=== PATIENT | female | born 1990 | race Caucasian/White ===

== ENCOUNTER 2016-10-31 09:24 | Emergency (ER) | payer OTHER ==
[~2016-10-31] VITALS: Ht 152.4 cm; Wt 111.7 kg
[2016-10-31 09:29] VITALS: TEMP 36.8; Ht 152.4 cm; Wt 111.7 kg
[2016-10-31 09:49] VITALS: O2SAT 98
[2016-10-31] MEDS ORDERED: SODIUM CHLORIDE 0.9% 1000ML 500 ML IV STA (09:49)
[2016-10-31] MEDS ORDERED: SODIUM CHLORIDE 0.9% 1000ML 1,000 ML IV STA (09:49)
[2016-10-31 10:21] LABS: HEMATOCRIT 35.8 % (37-47); MEAN CELL VOLUME 79.7 fL (80-100); MEAN CORPUSCULAR HEMOGLOBIN 27.4 pg (25-34); MEAN CORPUSCULAR HGB CONC 34.4 g/dl (32-36); PLATELET COUNT 228 K/uL (130-400); RED BLOOD COUNT 4.49 M/uL (4.2-5.4); WHITE BLOOD COUNT 12.49 K/uL (4.8-10.8)
--- NOTE | 2016-10-31 10:26 | DIAGNOSTIC IMAGING REPORT ---
CHEST ONE VIEW PORTABLE CLINICAL HISTORY: Chest pain. Difficulty breathing. COMPARISON STUDY: Chest radiograph May 27, 2016. FINDINGS: Lung lungs are mildly diminished. This is unchanged. There is no pneumothorax or pleural effusion. There is no evidence of pulmonary edema. Cardiac size is stable at the upper limits of normal. There is no evidence of pulmonary edema. IMPRESSION: No acute cardiopulmonary findings. Electronically signed by: Bryan Conroy M.D. 10/31/2016 10:24 AM Dictated Date/Time: 10/31/2016 10:23 AM
[2016-10-31 10:29] LABS: PARTIAL THROMBOPLASTIN RATIO 1.2; PROTHROMBIN TIME (PATIENT) 10.7 SECONDS (9.0-12.0)
[2016-10-31 10:38] LABS: ALT/SGPT 33 U/L (12-78); BLOOD UREA NITROGEN 13 mg/dl (7-18); BUN/CREATININE RATIO 15.1 (10-20); CALCIUM 8.7 mg/dl (8.5-10.1); CARBON DIOXIDE 24 mmol/L (21-32); CHLORIDE 107 mmol/L (98-107); CREATININE 0.88 mg/dl (0.60-1.20); GLUCOSE 114 mg/dl (70-99); POTASSIUM 3.4 mmol/L (3.5-5.1); SODIUM 142 mmol/L (136-145)
[2016-10-31 10:44] LABS: ALB/GLOB RATIO 0.8 (0.9-2); ALKALINE PHOSPHATASE 104 U/L (45-117); AST/SGOT 20 U/L (15-37)
[2016-10-31] MEDS ORDERED: OPTIRAY 320 IV PRN (12:00)
--- NOTE | 2016-10-31 12:43 | DIAGNOSTIC IMAGING REPORT ---
CT ANGIOGRAM OF THE CHEST CLINICAL HISTORY: Atypical chest pain. COMPARISON STUDY: Chest CT dated 07/04/2015 and chest x-ray dated 10/31/2016. TECHNIQUE: Following the IV administration of 75 cc of Optiray 320, CT angiogram of the chest was performed from the upper abdomen to the thoracic inlet utilizing the pulmonary embolus protocol. Images are reviewed in the axial, sagittal, and coronal planes. 3-D MIPS images are created and assessed. The patient was scanned twice due to IV malfunction. CT DOSE: 1132.43 mGy.cm FINDINGS: Thyroid: Imaged portions of the thyroid gland are normal in size and attenuation. Thoracic aorta: The thoracic aorta is normal in caliber and demonstrates standard 3-vessel arch anatomy. No dissection is seen. Pulmonary vasculature: The pulmonary trunk is normal in caliber. There are no filling defects identified in main, lobar, or segmental pulmonary branches to suggest pulmonary embolus. Heart: The heart is normal in size and configuration, and without pericardial effusion. Lungs and pleural spaces: The lungs and pleural spaces are clear. The trachea and central airways are patent. Mediastinum: There is a 2.6 x 5.5 cm lobulated soft tissue lesion anterior mediastinum. This is best seen on axial image #151. There is no mediastinal lymphadenopathy. Ana: Clear. Axillae: There is no axillary lymphadenopathy. Upper abdomen: Cholecystectomy clips are identified. Partially visualized upper abdominal viscera is otherwise within normal limits. Skeletal structures: No lytic or blastic bony lesions are seen. IMPRESSION: 1. There is no evidence of pulmonary embolus in the main, lobar, or segmental pulmonary arteries. 2. The lungs are clear. 3. Again seen is a 5.5 cm lobulated soft tissue lesion in the anterior mediastinum in the expected location of the thymus. This is pathologically indeterminant but unchanged from 07/04/2015 and of low suspicion. Electronically signed by: Landon Goetz M.D. 10/31/2016 12:41 PM Dictated Date/Time: 10/31/2016 12:32 PM
[2016-10-31 13:29] VITALS: BP 135/78; PULSE 84; O2SAT 98
--- NOTE | 2016-10-31 13:39 | EMERGENCY ROOM VISIT NOTE ---
History Report prepared by Gonzalo: Lola Encinas Under the Supervision of: Dr. Landon Bui M.D. First contact with patient: 09:40 Chief Complaint: chest tightness Stated Complaint: PAIN IN CHEST,TROUBLE BREATHING History of Present Illness The patient is a 26 year old female who presents to the Emergency Room with complaints of intermittent tightening pains to her chest over the past 2 months. Currently, she denies being in significant discomfort, however, she has not noticed any exacerbating factors, and nothing seems to make the pains better or worse. When aby a pain to her chest, the patient also becomes short of breath, but she denies radiation of pain to her neck, jaw, back or arm , and she has not become diaphoretic or nauseous. Patient states that she recently had her gallbladder removed late August 2016, and states that she has been experiencing the chest pain and shortness of breath intermittently since that time. She also notes that every bowel movement that she has passed since the surgery has consisted of diarrhea. Patient denies having recent fevers , chills, cough, significant abdominal pain, nausea, vomiting, urinary symptoms , or pain/swelling to her extremities. Source of History: patient Onset: over the past 2 months Position: chest Symptom Intensity: no current pain Quality: other (tightness) Timing: intermittent Associated Symptoms: + SOB, + diarrhea, No back pain, No chills, No cough, No fevers, No nausea, No urinary symptoms, No vomiting Review of Systems See HPI for pertinent positives & negatives. A total of 10 systems reviewed and were otherwise negative. Past Medical & Surgical Medical Problems: (1) Abdominal pain, chronic, right lower quadrant (2) Anxiety (3) Depression (4) Ulcer Surgical Problems: (1) History of appendectomy Family History Blood clots Aunt Diabetes mellitus FH: cancer FH: heart disease FH: lung disease FH: ovarian cancer Hypertension Kidney disease Kidney stones Seizures Social History Smoking Status: Never Smoker Alcohol Use: none Drug Use: none Marital Status: single Housing Status: lives with family Occupation Status: unemployed Current/Historical Medications Scheduled Pphweuk-Byvqnpvybtdgz-Ptmarzpl (Excedrin Migraine), 1 TAB PO PRN Citalopram Hydrobromide (Citalopram Hydrobromide), 10 MG PO QAM Fexofenadine-Pseudoephedrine (Barbara-D 24 Hour Allergy), 1 TAB PO QAM Scheduled PRN Gabapentin (Gabapentin), 100 MG PO TID PRN for ANXIETY Meclizine HCl (Meclizine HCl), 12.5 MG PO TID PRN for PRN Allergies Coded Allergies: No Known Allergies (Verified , 10/31/16) Physical Exam Vital Signs Date Time Temp Pulse Resp B/P Pulse Ox O2 Delivery O2 Flow Rate FiO2 10/31/16 13:29 84 24 135/78 98 Room Air 10/31/16 12:18 74 22 123/69 98 10/31/16 10:28 76 20 142/79 98 Room Air 10/31/16 10:02 87 10/31/16 09:49 98 Room Air 10/31/16 09:44 98 Room Air 10/31/16 09:29 36.8 89 18 117/77 97 Room Air Physical Exam GENERAL: Patient is in no acute distress. HEENT: No acute trauma, normocephalic atraumatic, mucous membranes moist, no nasal congestion, no scleral icterus. NECK: No stridor, no adenopathy, no meningismus, trachea is midline. LUNGS: Clear to auscultation bilaterally, no wheeze, no rhonchi, breath sounds equal. HEART: Without murmurs gallops or rubs, regular rate and rhythm. ABDOMEN: Soft, nontender, bowel sounds positive, no hernias, no peritonitis. EXTREMITIES: No cyanosis or edema, full range of motion of all the joints without pain or difficulty, no signs for acute trauma. NEUROLOGIC: Oriented x 3, no acute motor or sensory deficits, no focal weakness. SKIN: No rash, no jaundice, no diaphoresis. Medical Decision & Procedures ER Provider Diagnostic Interpretation: Urine dip showed small amount of blood and 1+ leukocytes. tests is negative. CT results as stated below per my review and radiologist interpretation: X-ray results as stated below per interpretation by me and the radiologist: CT ANGIOGRAM OF THE CHEST CLINICAL HISTORY: Atypical chest pain. COMPARISON STUDY: Chest CT dated 07/04/2015 and chest x-ray dated 10/31/2016. TECHNIQUE: Following the IV administration of 75 cc of Optiray 320, CT angiogram of the chest was performed from the upper abdomen to the thoracic inlet utilizing the pulmonary embolus protocol. Images are reviewed in the axial, sagittal, and coronal planes. 3-D MIPS images are created and assessed. The patient was scanned twice due to IV malfunction. CT DOSE: 1132.43 mGy.cm FINDINGS: Thyroid: Imaged portions of the thyroid gland are normal in size and attenuation. Thoracic aorta: The thoracic aorta is normal in caliber and demonstrates standard 3-vessel arch anatomy. No dissection is seen. Pulmonary vasculature: The pulmonary trunk is normal in caliber. There are no filling defects identified in main, lobar, or segmental pulmonary branches to suggest pulmonary embolus. Heart: The heart is normal in size and configuration, and without pericardial effusion. Lungs and pleural spaces: The lungs and pleural spaces are clear. The trachea and central airways are patent. Mediastinum: There is a 2.6 x 5.5 cm lobulated soft tissue lesion anterior mediastinum. This is best seen on axial image #151. There is no mediastinal lymphadenopathy. Ana: Clear. Axillae: There is no axillary lymphadenopathy. Upper abdomen: Cholecystectomy clips are identified. Partially visualized upper abdominal viscera is otherwise within normal limits. Skeletal structures: No lytic or blastic bony lesions are seen. IMPRESSION: 1. There is no evidence of pulmonary embolus in the main, lobar, or segmental pulmonary arteries. 2. The lungs are clear. 3. Again seen is a 5.5 cm lobulated soft tissue lesion in the anterior mediastinum in the expected location of the thymus. This is pathologically indeterminant but unchanged from 07/04/2015 and of low suspicion. Electronically signed by: Landon Goetz M.D. 10/31/2016 12:41 PM Dictated Date/Time: 10/31/2016 12:32 PM CHEST ONE VIEW PORTABLE CLINICAL HISTORY: Chest pain. Difficulty breathing. COMPARISON STUDY: Chest radiograph May 27, 2016. FINDINGS: Lung lungs are mildly diminished. This is unchanged. There is no pneumothorax or pleural effusion. There is no evidence of pulmonary edema. Cardiac size is stable at the upper limits of normal. There is no evidence of pulmonary edema. IMPRESSION: No acute cardiopulmonary findings. Electronically signed by: Bryan Conroy M.D. 10/31/2016 10:24 AM Dictated Date/Time: 10/31/2016 10:23 AM Laboratory Results 10/31/16 10:00 10/31/16 10:00 Test 10/31/16 10:00 10/31/16 10:02 Red Blood Count 4.49 M/uL (4.2-5.4) Mean Corpuscular Volume 79.7 fL (80-100) Mean Corpuscular Hemoglobin 27.4 pg (25-34) Mean Corpuscular Hemoglobin Concent 34.4 g/dl (32-36) RDW Standard Deviation 38.9 fL (36.4-46.3) RDW Coefficient of Variation 13.5 % (11.5-14.5) Mean Platelet Volume 10.0 fL (7.4-10.4) Prothrombin Time 10.7 SECONDS (9.0-12.0) Prothromb Time International Ratio 1.0 (0.9-1.1) Activated Partial Thromboplast Time 30.5 SECONDS (21.0-31.0) Partial Thromboplastin Ratio 1.2 Anion Gap 11.0 mmol/L (3-11) Est Creatinine Clear Calc Drug Dose 111.0 ml/min Estimated GFR () 105.8 Estimated GFR (Non- 91.3 BUN/Creatinine Ratio 15.1 (10-20) Calcium Level 8.7 mg/dl (8.5-10.1) Total Bilirubin 0.2 mg/dl (0.2-1) Aspartate Amino Transf (AST/SGOT) 20 U/L (15-37) Alanine Aminotransferase (ALT/SGPT) 33 U/L (12-78) Alkaline Phosphatase 104 U/L (45-117) Troponin I < 0.015 ng/ml (0-0.045) Total Protein 7.1 gm/dl (6.4-8.2) Albumin 3.2 gm/dl (3.4-5.0) Globulin 3.9 gm/dl (2.5-4.0) Albumin/Globulin Ratio 0.8 (0.9-2) Lipase 133 U/L (73-393) Bedside D-Dimer > 450 ng/mlFEU (0-450) Laboratory results reviewed by me. Medications Administered Medications (Trade) Dose Ordered Sig/Sumanth Route Start Time Stop Time Status Last Admin Dose Admin Sodium Chloride 500 ml @ 999 mls/hr Q31M STAT IV 10/31/16 09:49 10/31/16 10:19 DC 10/31/16 10:06 999 MLS/HR Sodium Chloride (Nss 1000ml) 1,000 ml @ 200 mls/hr Q5H STAT IV 10/31/16 09:49 10/31/16 13:44 DC 10/31/16 10:06 200 MLS/HR ECG Indication: chest pain Rate (beats per minute): 79 Rhythm: normal sinus Findings: ST elevation (mild, laterally, may be consistent with early repolarization or pericarditis. ), other (No reciprocal change) Change: no significant change (when compared to EKG from 07/25/16.) ED Course 0942: The patient was evaluated in room B8. A complete history and physical exam was performed. 0949: NSS 1,000 ml @ 200 mls/hr IV and NSS 500 ml @ 999 mls/hr IV were ordered. 1200: Upon reevaluation, patient was doing well and appeared to be resting more comfortably. She will go to CT for additional testing. 1314: The patient was reevaluated at this time and appeared to be doing well. I updated her on the results of her radiology reports and lab tests. Discharge instructions were also discussed at this time. She verbalized her understanding and agreement with the treatment plan, and she is now ready for disposition. Medical Decision The patient is a 26 year old female who presents to the ED with complaints of intermittent chest tightness over the past 2 months. Differential diagnoses considered include bronchiospasm, post operative pain, cardiac ischemia, PE, aortic dissection, anemia, electrolyte imbalance, and dehydration. There is a mild leukocytosis, this is likely consistent with the stress of her current situation although, infection could also cause this leukocytosis. There is no anemia. No significant electrolyte abnormality, kidney failure, hepatitis or pancreatitis. EKG shows a sinus rhythm with some chronic changes, no acute ischemia. Cardiac enzyme testing times one is not consistent with acute cardiac injury. Chest x-ray does not show free air or mediastinal widening. D-dimer testing was positive. Chest CT does not show PE, there is no evidence for aortic dissection. The patient received IV saline during her stay, she is resting comfortably. The cause for the tightness and ongoing issue since her gallbladder surgery is unclear. Nothing worrisome found by workup, she has been reassured. She is being discharged to follow with her surgeon and her outpatient family physician. Impression Primary Impression: Chest tightness Additional Impression: Status post cholecystectomy Scribe Attestation The scribe's documentation has been prepared under my direction and personally reviewed by me in its entirety. I confirm that the note above accurately reflects all work, treatment, procedures, and medical decision making performed by me. Departure Information Dispostion Home / Self-Care Referrals Gypsy Lynn D.O. (PCP) Forms HOME CARE DOCUMENTATION FORM, IMPORTANT VISIT INFORMATION Patient Instructions My [facility] Additional Instructions rest heat to the chest wall follow with the jill md imaging today was all ok return if worsening Problem Qualifiers
[2017-01-17] MEDS ORDERED: FEXO1TAB58 PO (08:56)
[2017-01-17] MEDS ORDERED: ASPI-390 PO (08:56)
[2017-01-17] MEDS ORDERED: MECL1TAB40 PO (08:58)
[2017-01-17] MEDS ORDERED: NRN100 PO (10:53)
[2017-06-28] MEDS ORDERED: DICL75TA2 PO (15:34)
== END 2016-10-31 13:40 | disposition home or self-care (01) ==
LOC: C.EDB 09:24
DX: R07.89 Other chest pain (principal); Z90.49 Acquired absence of other specified parts of digestive tract; R79.1 Abnormal coagulation profile; F32.9 Major depressive disorder, single episode, unspecified; Z79.899 Other long term (current) drug therapy; Z82.49 Family history of ischemic heart disease and other diseases of the circulatory system; Z83.3 Family history of diabetes mellitus; Z84.1 Family history of disorders of kidney and ureter; Z80.41 Family history of malignant neoplasm of ovary; R19.7 Diarrhea, unspecified

== ENCOUNTER 2016-12-01 16:37 | Emergency (ER) | payer OTHER ==
[~2016-12-01] VITALS: Ht 154.9 cm; Wt 113.2 kg
[2016-12-01 16:39] VITALS: TEMP 37; Ht 154.9 cm; Wt 113.2 kg
[2016-12-01] MEDS ORDERED: IBUPROFEN 200 MG TAB PO STA (16:56)
[2016-12-01] MEDS ORDERED: ACETAMINOPHEN 500 MG TAB PO STA (16:56)
--- NOTE | 2016-12-01 17:01 | EMERGENCY ROOM VISIT NOTE ---
History Report prepared by Gonzalo: Marcello Oscar Under the Supervision of: Dr. Kenzie Reid M.D. First contact with patient: 16:46 Chief Complaint: CHEST PAIN Stated Complaint: CHEST PAIN History of Present Illness The patient is a 26 year old female who presents to the Emergency Room with complaints of persistent right sided chest pain that radiates down her abdomen. This pain started earlier this evening. She rates her pain a 6/10 in severity. The patient had a cholecystectomy performed on September 01. She states that she has been experiencing intermittent chest pain when she does not eat since this surgical procedure. The patient came into the ED last month for an episode of pain similar to what she is experiencing today. She denies shortness of breath. Source of History: patient Onset: Earlier this evening Position: chest (right) Symptom Intensity: 6/10 Timing: other (Persistent ) Modifying Factors (Relieving): other (None) Associated Symptoms: No SOB Review of Systems See HPI for pertinent positives & negatives. A total of 10 systems reviewed and were otherwise negative. Past Medical & Surgical Medical Problems: (1) Abdominal pain, chronic, right lower quadrant (2) Anxiety (3) Depression (4) Ulcer Surgical Problems: (1) History of appendectomy Family History Blood clots Aunt Diabetes mellitus FH: cancer FH: heart disease FH: lung disease FH: ovarian cancer Hypertension Kidney disease Kidney stones Seizures Social History Smoking Status: Former Smoker Alcohol Use: none Drug Use: none Marital Status: single Housing Status: lives with family Occupation Status: unemployed Current/Historical Medications Scheduled Qknkqan-Vgrgadewpyhhv-Lqzfsuto (Excedrin Migraine), 1 TAB PO PRN Citalopram Hydrobromide (Citalopram Hydrobromide), 10 MG PO QAM Fexofenadine-Pseudoephedrine (Barbara-D 24 Hour Allergy), 1 TAB PO QAM Scheduled PRN Gabapentin (Gabapentin), 100 MG PO TID PRN for ANXIETY Meclizine HCl (Meclizine HCl), 12.5 MG PO TID PRN for PRN Allergies Coded Allergies: No Known Allergies (Verified , 12/01/16) Physical Exam Vital Signs Date Time Temp Pulse Resp B/P Pulse Ox O2 Delivery O2 Flow Rate FiO2 12/01/16 19:18 71 18 129/72 95 12/01/16 18:30 90 20 132/69 96 Room Air 12/01/16 16:51 91 12/01/16 16:50 98 Room Air 12/01/16 16:39 37.0 102 16 127/72 96 Room Air Physical Exam CONSTITUTIONAL: Mild emotional distress. HEENT: No icterus, moist mucous membranes NECK: No meningismus, trachea is midline. CARDIOVASCULAR: Regular rate, normal perfusion RESPIRATORY: Unlabored breathing. Clear to auscultation. GASTROINTESTINAL: Non-tender GENITOURINARY: No flank tenderness MUSCULOSKELETAL: Full range of motion NEUROLOGIC: No acute gross focal deficits. PSYCHIATRIC: Normal affect SKIN: Normal for ethnicity. Medical Decision & Procedures ER Provider Diagnostic Interpretation: Radiology results as stated below per my review and radiologist interpretation. CHEST CT WITH CONTRAST CT DOSE: HISTORY: Pain right sided CP constant for months s/p lisa 08/31, ranoutpnpils TECHNIQUE: Multiaxial CT images of the chest were performed following the intravenous administration of contrast. COMPARISON: 10/31/2016 FINDINGS: The lungs are clear. The mediastinal vascular structures are within normal limits. Residual thymus unchanged.. No mediastinal or hilar lymphadenopathy. No pleural effusion or pneumothorax. Limited views of the upper abdomen demonstrate a normal liver and spleen. IMPRESSION: No significant abnormality identified within the chest. Electronically signed by: Jovani Richards M.D. 12/01/2016 6:27 PM Dictated Date/Time: 12/01/2016 6:26 PM ABDOMEN AND PELVIS CT WITH IV CONTRAST CT DOSE: 1858.73 mGy.cm HISTORY: Pain constant right sided pain, family took pain pills s/p chole110/31 TECHNIQUE: Multiaxial CT images of the abdomen and pelvis were performed following the use of intravenous contrast. COMPARISON STUDY: None. FINDINGS: Lung bases are clear. Liver spleen and pancreas are unremarkable. Interval appendectomy and cholecystectomy. Nonobstructive bowel pattern. Several small mesenteric nodes. Lower abdominal bowel pattern is unremarkable. Uterus is anteflexed. No free fluid within the pelvic cul-de-sac. IMPRESSION: Mild mesenteric adenitis. Otherwise negative study status post cholecystectomy and appendectomy Electronically signed by: Jovani Richards M.D. 12/01/2016 6:30 PM Dictated Date/Time: 12/01/2016 6:29 PM Laboratory Results 12/01/16 17:05 Red Blood Count 4.68, Mean Corpuscular Volume 82.1, Mean Corpuscular Hemoglobin 27.8, Mean Corpuscular Hemoglobin Concent 33.9, Mean Platelet Volume 10.7, Neutrophils (%) (Auto) 60.3, Lymphocytes (%) (Auto) 30.2, Monocytes (%) (Auto) 6.9, Eosinophils (%) (Auto) 2.1, Basophils (%) (Auto) 0.4, Neutrophils # (Auto) 5.72, Lymphocytes # (Auto) 2.87, Monocytes # (Auto) 0.66, Eosinophils # (Auto) 0.20, Basophils # (Auto) 0.04 12/01/16 17:05 Test 12/01/16 16:56 12/01/16 17:05 Human Chorionic Gonadotropin, Qual NEG (NEG) White Blood Count 9.50 K/uL (4.8-10.8) Red Blood Count 4.68 M/uL (4.2-5.4) Hemoglobin 13.0 g/dL (12.0-16.0) Hematocrit 38.4 % (37-47) Mean Corpuscular Volume 82.1 fL (80-100) Mean Corpuscular Hemoglobin 27.8 pg (25-34) Mean Corpuscular Hemoglobin Concent 33.9 g/dl (32-36) Platelet Count 237 K/uL (130-400) Mean Platelet Volume 10.7 fL (7.4-10.4) Neutrophils (%) (Auto) 60.3 % Lymphocytes (%) (Auto) 30.2 % Monocytes (%) (Auto) 6.9 % Eosinophils (%) (Auto) 2.1 % Basophils (%) (Auto) 0.4 % Neutrophils # (Auto) 5.72 K/uL (1.4-6.5) Lymphocytes # (Auto) 2.87 K/uL (1.2-3.4) Monocytes # (Auto) 0.66 K/uL (0.11-0.59) Eosinophils # (Auto) 0.20 K/uL (0-0.5) Basophils # (Auto) 0.04 K/uL (0-0.2) RDW Standard Deviation 41.8 fL (36.4-46.3) RDW Coefficient of Variation 13.9 % (11.5-14.5) Immature Granulocyte % (Auto) 0.1 % Immature Granulocyte # (Auto) 0.01 K/uL (0.00-0.02) Anion Gap 8.0 mmol/L (3-11) Est Creatinine Clear Calc Drug Dose 116.7 ml/min Estimated GFR () 108.8 Estimated GFR (Non- 93.9 BUN/Creatinine Ratio 15.2 (10-20) Calcium Level 8.5 mg/dl (8.5-10.1) Total Bilirubin 0.2 mg/dl (0.2-1) Direct Bilirubin < 0.1 mg/dl (0-0.2) Aspartate Amino Transf (AST/SGOT) 22 U/L (15-37) Alanine Aminotransferase (ALT/SGPT) 33 U/L (12-78) Alkaline Phosphatase 102 U/L (45-117) Troponin I < 0.015 ng/ml (0-0.045) Total Protein 7.7 gm/dl (6.4-8.2) Albumin 3.4 gm/dl (3.4-5.0) Lipase 146 U/L (73-393) Labs reviewed by ED physician. Medications Administered Medications (Trade) Dose Ordered Sig/Sumanth Route Start Time Stop Time Status Last Admin Dose Admin Acetaminophen (Tylenol Tab) 1,000 mg NOW STAT PO 12/01/16 16:56 12/01/16 16:59 DC 12/01/16 17:43 1,000 MG Ibuprofen (Advil Tab) 800 mg NOW STAT PO 12/01/16 16:56 12/01/16 16:59 DC 12/01/16 17:42 800 MG ED Course 1650: Past medical records reviewed. The patient was evaluated in room A12B. A complete history and physical examination was performed. 165: Ordered Advil Tablet 800 mg PO, Tylenol Tablet 1,000 mg PO. 1903: Upon reexamination the patient is resting more comfortably. I discussed results and treatment plan with the patient. She verbalizes agreement and understanding. The patient is ready for discharge. Medical Decision Differential diagnoses include but are not limited to; Musculoskeletal pain, pneumonia, intraabdominal pathology. 26-year-old presents into the emergency room for evaluation of chronic right- sided chest pain which has been present for weeks to months status post cholecystectomy August 2016. She notes she has run out of the Percocet left over from the surgery after her family took the pills. She has not taken anything dqbt-yvh-jrubhky for her pain needs but requests something here in the emergency room. Medical screening examinations were performed and no acute pathology discovered. She was given Tylenol and Motrin and appeared comfortable at the time of discharge when I discussed the results. She was advised to continue Tylenol Motrin as needed and follow-up with eye doctor for further pain needs. Impression Primary Impression: Right-sided chest pain Scribe Attestation The scribe's documentation has been prepared under my direction and personally reviewed by me in its entirety. I confirm that the note above accurately reflects all work, treatment, procedures, and medical decision making performed by me. Departure Information Dispostion Home / Self-Care Referrals Gypsy Lynn D.O. (PCP) Forms HOME CARE DOCUMENTATION FORM, IMPORTANT VISIT INFORMATION Patient Instructions My [facility]
[2016-12-01] MEDS ORDERED: OPTIRAY 320 IV PRN (17:15)
[2016-12-01 17:54] LABS: BASO % 0.4 %; BASO ABS # 0.04 K/uL (0-0.2); COMPLETE YES; EOS % 2.1 %; HEMATOCRIT 38.4 % (37-47); IG% 0.1 %; LYMPH % 30.2 %; LYMPH ABS # 2.87 K/uL (1.2-3.4); MEAN CELL VOLUME 82.1 fL (80-100); MEAN CORPUSCULAR HEMOGLOBIN 27.8 pg (25-34); MEAN CORPUSCULAR HGB CONC 33.9 g/dl (32-36); MEAN PLATELET VOLUME 10.7 fL (7.4-10.4); MONO % 6.9 %; NEUT % 60.3 %; PLATELET COUNT 237 K/uL (130-400); RED BLOOD COUNT 4.68 M/uL (4.2-5.4)
[2016-12-01 17:55] LABS: ALT/SGPT 33 U/L (12-78); BLOOD UREA NITROGEN 13 mg/dl (7-18); BUN/CREATININE RATIO 15.2 (10-20); CALCIUM 8.5 mg/dl (8.5-10.1); CARBON DIOXIDE 26 mmol/L (21-32); CHLORIDE 106 mmol/L (98-107); CREATININE 0.86 mg/dl (0.60-1.20); GLUCOSE 103 mg/dl (70-99); POTASSIUM 3.6 mmol/L (3.5-5.1); SODIUM 140 mmol/L (136-145)
[2016-12-01 17:58] LABS: ALKALINE PHOSPHATASE 102 U/L (45-117); AST/SGOT 22 U/L (15-37)
[2016-12-01 18:06] LABS: PREG INTERNAL NEGATIVE QC NEG CLEAR BACKGROUND; PREG INTERNAL POSITIVE QC POS CONTROL LINE
--- NOTE | 2016-12-01 18:29 | DIAGNOSTIC IMAGING REPORT ---
CHEST CT WITH CONTRAST CT DOSE: HISTORY: Pain right sided CP constant for months s/p lisa 08/31, ranoutpnpils TECHNIQUE: Multiaxial CT images of the chest were performed following the intravenous administration of contrast. COMPARISON: 10/31/2016 FINDINGS: The lungs are clear. The mediastinal vascular structures are within normal limits. Residual thymus unchanged.. No mediastinal or hilar lymphadenopathy. No pleural effusion or pneumothorax. Limited views of the upper abdomen demonstrate a normal liver and spleen. IMPRESSION: No significant abnormality identified within the chest. Electronically signed by: Jovani Richards M.D. 12/01/2016 6:27 PM Dictated Date/Time: 12/01/2016 6:26 PM
--- NOTE | 2016-12-01 18:32 | DIAGNOSTIC IMAGING REPORT ---
ABDOMEN AND PELVIS CT WITH IV CONTRAST CT DOSE: 1858.73 mGy.cm HISTORY: Pain constant right sided pain, family took pain pills s/p chole110/31 TECHNIQUE: Multiaxial CT images of the abdomen and pelvis were performed following the use of intravenous contrast. COMPARISON STUDY: None. FINDINGS: Lung bases are clear. Liver spleen and pancreas are unremarkable. Interval appendectomy and cholecystectomy. Nonobstructive bowel pattern. Several small mesenteric nodes. Lower abdominal bowel pattern is unremarkable. Uterus is anteflexed. No free fluid within the pelvic cul-de-sac. IMPRESSION: Mild mesenteric adenitis. Otherwise negative study status post cholecystectomy and appendectomy Electronically signed by: Jovani Richards M.D. 12/01/2016 6:30 PM Dictated Date/Time: 12/01/2016 6:29 PM
[2016-12-01 19:18] VITALS: BP 129/72; PULSE 71; O2SAT 95
[2017-01-17] MEDS ORDERED: FEXO1TAB58 PO (08:56)
[2017-01-17] MEDS ORDERED: ASPI-390 PO (08:56)
[2017-01-17] MEDS ORDERED: MECL1TAB40 PO (08:58)
[2017-01-17] MEDS ORDERED: NRN100 PO (10:53)
[2017-06-28] MEDS ORDERED: DICL75TA2 PO (15:34)
== END 2016-12-01 19:21 | disposition home or self-care (01) ==
LOC: C.EDB 16:38 → C.EDA 19:21
DX: R07.89 Other chest pain (principal); F41.9 Anxiety disorder, unspecified; F32.9 Major depressive disorder, single episode, unspecified; Z87.19 Personal history of other diseases of the digestive system; Z98.890 Other specified postprocedural states; Z87.891 Personal history of nicotine dependence; Z83.3 Family history of diabetes mellitus; Z80.9 Family history of malignant neoplasm, unspecified; Z82.49 Family history of ischemic heart disease and other diseases of the circulatory system; Z84.1 Family history of disorders of kidney and ureter; Z82.0 Family history of epilepsy and other diseases of the nervous system

== ENCOUNTER 2017-01-09 21:39 | Emergency (ER) | payer OTHER ==
[~2017-01-09] VITALS: Ht 152.4 cm; Wt 113.0 kg
[2017-01-09 21:49] VITALS: TEMP 36.7; Ht 152.4 cm; Wt 113.0 kg
--- NOTE | 2017-01-09 23:21 | EMERGENCY ROOM VISIT NOTE ---
History First contact with patient: 22:29 Chief Complaint: THROAT PAIN/INJURY Stated Complaint: SORE THROAT 6 TO 7 WKS History of Present Illness The patient is a 26 year old female who presents to the Emergency Room with complaints of a sore throat for the past 7 weeks. The patient reports that she has had a dry mouth and sore throat for the past 6-7 weeks. She states that she feels her sense of taste has been decreased. She has taken Robitussin without relief of the symptoms. She does report she has an occasional cough. Her symptoms seem to be worse at night. She denies any abdominal pain, nausea, vomiting, fevers, headache, neck pain or earaches. Review of Systems A complete 10-point Review of Systems was discussed with the patient, with pertinent positives and negatives listed in the History of Present Illness. All remaining Review of Systems questions can be considered negative unless otherwise specified. Past Medical/Surgical History Medical Problems: (1) Abdominal pain, chronic, right lower quadrant (2) Anxiety (3) Depression (4) Ulcer Surgical Problems: (1) History of appendectomy Family History Blood clots Aunt Diabetes mellitus FH: cancer FH: heart disease FH: lung disease FH: ovarian cancer Hypertension Kidney disease Kidney stones Seizures Social History Smoking Status: Current Every Day Smoker Alcohol Use: none Drug Use: none Marital Status: single Housing Status: lives with family Occupation Status: unemployed Current/Historical Medications Scheduled Ctxzxax-Silzpfaznqtui-Cxcwxlep (Excedrin Migraine), 1 TAB PO PRN Citalopram Hydrobromide (Citalopram Hydrobromide), 10 MG PO QAM Fexofenadine-Pseudoephedrine (Barbara-D 24 Hour Allergy), 1 TAB PO QAM Scheduled PRN Gabapentin (Gabapentin), 100 MG PO TID PRN for ANXIETY Meclizine HCl (Meclizine HCl), 12.5 MG PO TID PRN for PRN Allergies Coded Allergies: No Known Allergies (Verified , 12/01/16) Physical Exam Vital Signs Date Time Temp Pulse Resp B/P Pulse Ox O2 Delivery O2 Flow Rate FiO2 01/09/17 21:49 36.7 100 18 159/83 99 Room Air Physical Exam VITALS: Vitals are noted on the nurse's note and reviewed by myself. Vital signs stable. GENERAL: This is a 26-year-old female, in no acute distress, nondiaphoretic, well-developed well-nourished. SKIN: Capillary reflex less than 2 seconds. HEENT: Normocephalic. PERRLA. EOMI. Nares patent. Mucous membranes moist. Neck is supple without nuchal rigidity. HEART: Regular rate and rhythm without murmurs gallops or rubs. LUNGS: Clear to auscultation bilaterally without wheezes, rales or rhonchi. ABDOMEN: Soft, nontender to palpation. NEURO: Patient was alert and oriented to person place and time. Medical Decision & Procedures Medical Decision Differential diagnosis includes strep pharyngitis, GERD, viral pharyngitis, among others. The patient was evaluated as above. Strep swab was negative. The patient's physical exam was unremarkable. The patient describes symptoms that have been ongoing for greater than 1 month. I feel her symptoms are likely secondary to GERD. She will be placed on Prilosec and follow-up with her primary care provider. She verbalized understanding of my assessment and treatment plan and was discharged home in good condition. Impression Primary Impression: Sore throat Departure Information Dispostion Home / Self-Care Condition GOOD Referrals Nanda Roberts M.D. (PCP) Patient Instructions [facility]
[2017-01-09 23:48] VITALS: BP 125/83; PULSE 91; O2SAT 96
[2017-01-17] MEDS ORDERED: FEXO1TAB58 PO (08:56)
[2017-01-17] MEDS ORDERED: ASPI-390 PO (08:56)
[2017-01-17] MEDS ORDERED: MECL1TAB40 PO (08:58)
[2017-01-17] MEDS ORDERED: NRN100 PO (10:53)
[2017-06-28] MEDS ORDERED: DICL75TA2 PO (15:34)
== END 2017-01-09 23:49 | disposition home or self-care (01) ==
LOC: C.EDB 21:40 → C.EDD 23:49
DX: J02.9 Acute pharyngitis, unspecified (principal); R05 Cough; F17.210 Nicotine dependence, cigarettes, uncomplicated

== ENCOUNTER 2017-01-17 21:25 | Emergency (ER) | payer OTHER ==
[~2017-01-17] VITALS: Ht 152.4 cm; Wt 112.4 kg
[~2017-01-17 21:25] MED LIST: ASPI-390 PO; FEXO1TAB58 PO; MECL1TAB40 PO; NRN100 PO
[2017-01-17 21:32] VITALS: TEMP 36.8; Ht 152.4 cm; Wt 112.4 kg
[2017-01-17] MEDS ORDERED: CITA10TA4 PO (21:39)
[2017-01-17] MEDS ORDERED: AMOX875T PO (22:06)
[2017-01-17] MEDS ORDERED: AMOXICILLIN/CLAVULANATE TAB 875 MG TAB PO ONE (22:15)
[2017-01-17 22:17] VITALS: BP 148/86; PULSE 92; O2SAT 99
--- NOTE | 2017-01-18 00:41 | EMERGENCY ROOM VISIT NOTE ---
History First contact with patient: 21:56 Chief Complaint: WOUND INFECTION Stated Complaint: RT LEG BURNING, HARD TO WALK ON, INFECTED TATTOO Nursing Triage Summary: Patient states "I think my tattoo might be infected. It's getting hard to walk on and it's burning." History of Present Illness The patient is a 26 year old female who presents to the Emergency Room with complaints of pain and redness of her right lower leg. The patient states that she got a tattoo about 3 days ago, and is now having pain and redness in the area. The patient states the surrounding skin is now reddened and warm. The patient has not had fever or chills. She has not had drainage or discharge. She rates her current discomfort a 7/10. Review of Systems More than 10 systems were reviewed and otherwise negative with the exception of history of present illness. Past Medical/Surgical History Medical Problems: (1) Abdominal pain, chronic, right lower quadrant (2) Anxiety (3) Depression (4) Ulcer Surgical Problems: (1) History of appendectomy Family History Blood clots Aunt Diabetes mellitus FH: cancer FH: heart disease FH: lung disease FH: ovarian cancer Hypertension Kidney disease Kidney stones Seizures Social History Smoking Status: Never Smoker Alcohol Use: none Drug Use: none Marital Status: single Housing Status: lives with family Occupation Status: unemployed Current/Historical Medications Scheduled Amoxicillin & Pot Clavulanate (Augmentin 875-125 mg), 1 TAB PO BID Guvpzxr-Ozutcxeqjfiul-Edihqpnq (Excedrin Migraine), 1 TAB PO PRN Citalopram Hydrobromide (Citalopram Hydrobromide), 10 MG PO QAM Fexofenadine-Pseudoephedrine (Barbara-D 24 Hour Allergy), 1 TAB PO QAM Gabapentin (Gabapentin), 100 MG PO TID Scheduled PRN Meclizine HCl (Meclizine HCl), 12.5 MG PO TID PRN for PRN Allergies Coded Allergies: No Known Allergies (Verified , 12/01/16) Physical Exam Vital Signs Date Time Temp Pulse Resp B/P Pulse Ox O2 Delivery O2 Flow Rate FiO2 01/17/17 22:17 92 18 148/86 99 01/17/17 21:32 36.8 89 18 120/85 98 Room Air Pain Rating (0-10): 4.0 Physical Exam VITALS: Vitals are noted on the nurse's note and reviewed by myself. Vital signs stable. GENERAL: Well-developed, well-nourished, white female, who is in no acute distress and resting comfortably. Patient is cooperative with the examination. HEAD: Normocephalic atraumatic. HEART: Regular rate and rhythm without murmurs gallops or rubs. LUNGS: Clear to auscultation bilaterally without wheezes, rales or rhonchi. No retractions or accessory muscle use. SKIN: The skin on the lateral aspect of the right calf is with new appearing tattoo. The tattoo and surrounding tissue appears erythematous and tender on exam. No abscess appreciated. No palpable cord. Total dimension measures approximately 16 x 8 cm. Medical Decision & Procedures Medications Administered Medications (Trade) Dose Ordered Sig/Sumanth Route Start Time Stop Time Status Last Admin Dose Admin Amoxicillin/ Clavulanate Potassium (Augmentin Tab) 875 mg NOW ONCE PO 01/17/17 22:15 01/17/17 22:16 DC 01/17/17 22:12 875 MG ED Course Physical exam and history were performed. Nursing notes and EMR were reviewed. Patient appears to have infected tattoo on her right lower leg. I do not have concern for DVT as this appears distinctly related to her tattoo. She does not have abscess. I discussed options of care with the patient, and we will start her on antibiotics. The patient prefers to take a minimal amount of medication , and after discussion we will start her on Augmentin. The patient is to follow with her primary care physician in the next few days. She was otherwise invited back to the ER with any new, worsening, or concerning symptoms. The chart was completed utilizing Final[employer] Speech Voice Recognition Software. Grammatical errors, random word insertions, pronoun errors, and incomplete sentences are an occasional consequence of this system due to software limitations, ambient noise, and hardware issues. Any formal questions or concerns about the content, text, or information contained within the body of this dictation should be directly addressed to the provider for clarification. . Medical Decision Differential diagnosis: Etiologies such as cellulitis, abscess, MRSA infection, DVT, necrotizing fasciitis, dermatitis, drug eruption, as well as others were entertained.. Impression Primary Impression: Cellulitis of lower leg Departure Information Dispostion Home / Self-Care Condition GOOD Prescriptions Amoxicillin & Pot Clavulanate (Augmentin 875-125 mg) 1 Tab Tab 1 TAB PO BID for 7 Days, #14 TAB Prov: Taz Arroyo PA-C 01/17/17 Forms HOME CARE DOCUMENTATION FORM, IMPORTANT VISIT INFORMATION Patient Instructions My [facility] Additional Instructions You were seen and evaluated today on an emergency basis only. This is not a substitute for, or an effort to provide, complete comprehensive medical care. It is not possible to recognize and treat all injuries or illnesses in a single emergency department visit. For this reason it is recommended that you followup with your primary care physician this week for ongoing care and evaluation. For baseline pain relief you may alternate ibuprofen and acetaminophen every 4 hours for pain control. Take 600 mg ibuprofen (Advil) and then 4 hours later take 1000 mg acetaminophen (Tylenol). Do not take more than 3000 mg acetaminophen in a single day. Amoxicillin Clavulanate (Augmentin) 875mg: Take one pill twice daily for 7 days for your infection. All antibiotics can cause diarrhea. If this occurs and you feel worse or it does not resolve in 1-2 days follow up with your doctor or return to the Emergency Department as this could be signs of serious underlying problems. Any medication can cause an allergic reaction, stop the pills immediately and return to the ER for rash, hives, breathing difficulties, or swelling. You are welcome to return to the emergency department anytime with new, worsening, or concerning symptoms.
[2017-06-28] MEDS ORDERED: DICL75TA2 PO (15:34)
== END 2017-01-17 22:18 | disposition home or self-care (01) ==
LOC: C.EDB 21:26 → C.EDD 22:18
DX: L03.115 Cellulitis of right lower limb (principal); F32.9 Major depressive disorder, single episode, unspecified; Z90.89 Acquired absence of other organs; Z82.49 Family history of ischemic heart disease and other diseases of the circulatory system; Z80.41 Family history of malignant neoplasm of ovary; Z83.3 Family history of diabetes mellitus; Z84.1 Family history of disorders of kidney and ureter; Z82.0 Family history of epilepsy and other diseases of the nervous system; Z79.899 Other long term (current) drug therapy

== ENCOUNTER 2017-01-21 03:17 | Emergency (ER) | payer OTHER ==
[~2017-01-21] VITALS: Ht 152.4 cm; Wt 111.4 kg
[~2017-01-21 03:17] MED LIST changes: +AMOX875T PO; +CITA10TA4 PO
[2017-01-21 03:28] VITALS: TEMP 36.6; Ht 152.4 cm; Wt 111.4 kg
[2017-01-21] MEDS ORDERED: FLUCONAZOLE 50 MG TAB PO ONE (05:30)
--- NOTE | 2017-01-21 05:32 | EMERGENCY ROOM VISIT NOTE ---
ED Visit Note First contact with patient: 03:31 I saw this patient in conjunction with Lo Reveles PA-C. I agree with her decision making and treatment plan.
[2017-01-21 05:33] VITALS: BP 125/74; PULSE 82; O2SAT 98
--- NOTE | 2017-01-21 05:33 | EMERGENCY ROOM VISIT NOTE ---
History First contact with patient: 03:31 Chief Complaint: PELVIC PAIN Stated Complaint: V-MEETA DISCOMFORT,REALLY BAD History of Present Illness The patient is a 26 year old female who presents to the Emergency Room with complaints of vaginal itching, vaginal discharge, vaginal discomfort for the past day. Patient states this feels like a yeast infection. No chest or . No chance for STIs per patient. Patient denies chest pain, abdominal pain, nausea, vomiting, diarrhea, urinary symptoms, back pain, diabetes, polydipsia, polyuria. Review of Systems See HPI for pertinent positives & negatives. A total of 10 systems reviewed and were otherwise negative. Past Medical/Surgical History Medical Problems: (1) Abdominal pain, chronic, right lower quadrant (2) Anxiety (3) Depression (4) Ulcer Surgical Problems: (1) History of appendectomy Family History Blood clots Aunt Diabetes mellitus FH: cancer FH: heart disease FH: lung disease FH: ovarian cancer Hypertension Kidney disease Kidney stones Seizures Social History Smoking Status: Never Smoker Alcohol Use: none Drug Use: none Marital Status: single Housing Status: lives with family Occupation Status: unemployed Current/Historical Medications Scheduled Amoxicillin & Pot Clavulanate (Augmentin 875-125 mg), 1 TAB PO BID Wmqpavf-Hpkshynztoyww-Wmxfvdsk (Excedrin Migraine), 1 TAB PO PRN Citalopram Hydrobromide (Citalopram Hydrobromide), 10 MG PO QAM Fexofenadine-Pseudoephedrine (Barbara-D 24 Hour Allergy), 1 TAB PO QAM Gabapentin (Gabapentin), 100 MG PO TID Scheduled PRN Meclizine HCl (Meclizine HCl), 12.5 MG PO TID PRN for PRN Allergies Coded Allergies: No Known Allergies (Verified , 01/21/17) Physical Exam Vital Signs Date Time Temp Pulse Resp B/P Pulse Ox O2 Delivery O2 Flow Rate FiO2 01/21/17 03:28 36.6 92 18 119/86 96 Room Air Physical Exam VITALS: Vitals are noted on the nurse's note and reviewed by myself. Vital signs stable. GENERAL: Pleasant female, in no acute distress, nondiaphoretic, well-developed well-nourished. SKIN: Capillary reflex less than 2 seconds. HEENT: Normocephalic. PERRLA. EOMI. Nares patent. Mucous membranes moist. Neck is supple without nuchal rigidity. HEART: Regular rate and rhythm without murmurs gallops or rubs. LUNGS: Clear to auscultation bilaterally without wheezes, rales or rhonchi. No retractions or accessory muscle use. ABDOMEN: Positive bowel sounds x 4. Normal tympanic percussion. Soft, protuberant, obese, nontender, without masses or organomegaly. Parr sign negative. No guarding or rebound tenderness. No CVA tenderness exam: Normal external female genitalia, director of institutional research present, white cottage cheese discharge in the vault, cultures taken and sent, no CMT or adnexal tenderness. Coffee Shop Attendant present MUSCULOSKELETAL: No gross musculoskeletal defects. NEURO: Patient was alert and oriented to person place and time. Normal sensation to light and sharp touch. No focal neurological deficits. Medical Decision & Procedures Laboratory Results Test 01/21/17 03:50 ED Course Prior records reviewed and summarized as above. Triage Nursing notes reviewed. The patient's history was concerning for vaginal itching and discharge. Differential diagnosis: Etiologies such as candidiasis, STI, infection, cellulitis, as well as others were entertained.. Physical examination: The physical examination was consistent with candidiasis ER treatment provided: Diflucan On reassessment the patient felt better. Diagnostics interpreted by me: The labs cultures pending This appears to be candidiasis. Patient was started on Diflucan. She is advised it'll take a few days for this to resolve. She is advised to follow-up with family care or OB in a few days or here in the ER sooner for vaginal pain, vaginal discharge, worsening signs or symptoms or as needed. Patient did not have an acute abdomen on exam. She is well-appearing. By the evaluation outlined above emergent etiologies such as PID as well as others were deemed relatively unlikely. The pt informed about the findings as listed above. All questions were answered and pleased with the treatment. Return instructions were outlined and the patient was discharged in stable condition. Referral: The patient was referred back to primary care physician for follow-up in 2 to 3 days for a recheck of the current condition. Medical Decision As above Impression Primary Impression: Vulvovaginal candidiasis Departure Information Dispostion Home / Self-Care Condition GOOD Referrals No Doctor, Assigned (PCP) Patient Instructions [facility] Additional Instructions The medicine will take a few days to work. Ibuprofen(Motrin, Advil) may be used for fever or pain. Use 600mg every six hours as needed. Take with food. Avoid using more than 2400mg in a 24 hour period. Do not use 2400mg per day for more than three consecutive days without physician direction. Prolonged inappropriate use can lead to stomach upset or ulcers. (AND/OR) Acetaminophen(Tylenol) may be used for fever or pain. Use 1000mg every six hours as needed. Avoid using more than 3000mg in a 24 hour period. Rest and drink plenty of fluids as tolerated. Continue current medications. Avoid strenuous activities and anything that worsens your pain. Resume normal activities once your symptoms resolve. Return to the ER immediately for worsening or persistent pelvic pain, abdominal pain, vomiting, fevers, chest pains, difficulty breathing, worsening of your condition, or as needed. Follow up with your primary physician or HACK SAW OPERATOR in 2-3 days for a recheck of your current condition.
[2017-01-24 00:01] LABS: CHLAMYDIA TRACH RNA*** NOT DETECTED (NOT DETECTED); GC (NEIS GONORRHOEAE)RNA** NOT DETECTED (NOT DETECTED)
[2017-06-28] MEDS ORDERED: DICL75TA2 PO (15:34)
== END 2017-01-21 05:53 | disposition home or self-care (01) ==
LOC: C.EDB 03:19
DX: B37.3 Candidiasis of vulva and vagina (principal); F41.9 Anxiety disorder, unspecified; F32.9 Major depressive disorder, single episode, unspecified; Z87.19 Personal history of other diseases of the digestive system; Z98.890 Other specified postprocedural states; Z79.82 Long term (current) use of aspirin; Z79.899 Other long term (current) drug therapy; Z83.3 Family history of diabetes mellitus; Z80.9 Family history of malignant neoplasm, unspecified; Z82.49 Family history of ischemic heart disease and other diseases of the circulatory system; Z84.1 Family history of disorders of kidney and ureter; Z82.0 Family history of epilepsy and other diseases of the nervous system; Z80.41 Family history of malignant neoplasm of ovary

== ENCOUNTER 2017-02-01 00:09 | Emergency (ER) | payer OTHER ==
[~2017-02-01] VITALS: Ht 152.4 cm; Wt 111.8 kg
[~2017-02-01 00:09] MED LIST changes: -AMOX875T PO
[2017-02-01 00:12] VITALS: TEMP 36.7; Ht 152.4 cm; Wt 111.8 kg
[2017-02-01] MEDS ORDERED: MECLIZINE HCL 12.5 MG TAB PO ONE (01:00)
[2017-02-01] MEDS ORDERED: MECLIZINE HCL 25 MG TAB PO ONE (01:03)
[2017-02-01] MEDS ORDERED: MECL1TAB40 PO (03:25)
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
[2017-02-01 03:37] VITALS: BP 97/57; PULSE 95; O2SAT 97
--- NOTE | 2017-02-01 06:48 | DIAGNOSTIC IMAGING REPORT ---
CT HEAD WITHOUT CONTRAST (CT) CLINICAL HISTORY: dizziness COMPARISON STUDY: 07/07/2016 TECHNIQUE: Axial CT of the brain is performed from the vertex to the skull base. IV contrast was not administered for this examination. CT DOSE: 537.48 mGy.cm FINDINGS: No intra or extra-axial mass lesions are visualized. There is no CT evidence of acute cortical infarction. There is no evidence of midline shift. There is no acute hemorrhage. No calvarial fractures are visualized. There is no evidence of pathologic ventricular dilatation. There is no evidence of acute sinusitis IMPRESSION: Normal noncontrast head CT. Electronically signed by: Fausto Harding M.D. 02/01/2017 6:46 AM Dictated Date/Time: 02/01/2017 6:45 AM
[2017-06-28] MEDS ORDERED: DICL75TA2 PO (15:34)
== END 2017-02-01 03:34 | disposition home or self-care (01) ==
LOC: C.EDB 00:10
DX: R42 Dizziness and giddiness (principal); R07.89 Other chest pain; F41.9 Anxiety disorder, unspecified; F32.9 Major depressive disorder, single episode, unspecified; Z79.899 Other long term (current) drug therapy; Z87.19 Personal history of other diseases of the digestive system; Z80.41 Family history of malignant neoplasm of ovary; Z82.0 Family history of epilepsy and other diseases of the nervous system; Z82.49 Family history of ischemic heart disease and other diseases of the circulatory system; Z83.2 Family history of diseases of the blood and blood-forming organs and certain disorders involving the immune mechanism; Z83.3 Family history of diabetes mellitus; Z84.1 Family history of disorders of kidney and ureter

== ENCOUNTER 2017-02-27 23:28 | Emergency (ER) | payer OTHER ==
[~2017-02-27] VITALS: Ht 152.4 cm; Wt 113.8 kg
[2017-02-27 23:35] VITALS: TEMP 37; Ht 152.4 cm; Wt 113.8 kg
--- NOTE | 2017-02-27 23:43 | EMERGENCY ROOM VISIT NOTE ---
History Report prepared by Gonzalo: Jamar Gonzalez Under the Supervision of: Dr. Justin Gerber D.O. First contact with patient: 23:31 Stated Complaint: FACIAL NUMBNESS, RT SHOULDER PAIN, DIZZY History of Present Illness The patient is a 27 year old female who presents to the Emergency Room with complaints of persistent facial numbness that started five hours ago. The patient was driving when the numbness started. She rested for an hour or two and the numbness started to resolve. When the patient started driving again, the numbness came back. The patient notes that the numbness is on the right side of her face from her lip and around her cheek. She also complains of chest pain, right shoulder pain, and nausea. The patient notes she has never had numbness in her face like this before. She does note that she has been more stressed recently and has been having headaches more than normal. Source of History: patient Onset: 5 hours ago Position: other (face) Quality: numbness Timing: other (persistent) Associated Symptoms: + chest pain, + headache, + nausea Note: Other associated symptoms: right shoulder pain Review of Systems See HPI for pertinent positives & negatives. A total of 10 systems reviewed and were otherwise negative. Past Medical & Surgical Medical Problems: (1) Abdominal pain, chronic, right lower quadrant (2) Anxiety (3) Depression (4) Ulcer Surgical Problems: (1) History of appendectomy Family History Blood clots Aunt Diabetes mellitus FH: cancer FH: heart disease FH: lung disease FH: ovarian cancer Hypertension Kidney disease Kidney stones Seizures Social History Smoking Status: Never Smoker Alcohol Use: none Drug Use: none Marital Status: single Housing Status: lives with family Occupation Status: unemployed Current/Historical Medications Scheduled Citalopram Hydrobromide (Citalopram Hydrobromide), 10 MG PO QAM Fexofenadine-Pseudoephedrine (Barbara-D 24 Hour Allergy), 1 TAB PO QAM Gabapentin (Gabapentin), 100 MG PO TID Scheduled PRN Sieghlt-Ybymltgpupszn-Tzkawkxx (Excedrin Migraine), 1 TAB PO UD PRN for Headache Meclizine HCl (Meclizine HCl), 12.5 MG PO TID PRN for Dizziness or Vertigo Allergies Coded Allergies: No Known Allergies (Verified , 02/28/17) Physical Exam Vital Signs Date Time Temp Pulse Resp B/P Pulse Ox O2 Delivery O2 Flow Rate FiO2 02/28/17 01:00 114/62 02/28/17 00:58 84 23 94 Room Air 02/28/17 00:45 100/62 02/28/17 00:28 78 20 95 Room Air 02/27/17 23:35 37.0 80 18 124/88 100 Room Air 02/27/17 23:35 Room Air 02/27/17 23:34 94 02/27/17 23:31 124/88 Physical Exam GENERAL: Patient is awake, alert, and in no acute distress. Patient is resting comfortably and showing no signs of anxiety EYES: The conjunctivae are clear. The pupils are round and reactive. EARS, NOSE, MOUTH AND THROAT: The nose is without any evidence of any deformity. Mucous membranes are moist tongue is midline NECK: The neck is nontender and supple. RESPIRATORY: Normal respiratory effort is noted there is no evidence of wheezing rhonchi or rales CARDIOVASCULAR: Regular rate and rhythm noted there no murmurs rubs or gallops normal S1 normal S2 GASTROINTESTINAL: The abdomen is soft. Bowel sounds are present in all quadrants. Abdomen is nontender MUSCULOSKELETAL/EXTREMITIES: There is no evidence of gross deformity full range of motion is noted in the hips and shoulders SKIN: There is no obvious evidence of any rash. There are no petechiae, pallor or cyanosis noted. NEUROLOGIC: Patient is awake alert and oriented x3 strength is symmetric patellar reflexes are 2+ bilaterally Medical Decision & Procedures ER Provider Diagnostic Interpretation: CT the head was obtained in the emergency department. The report was reviewed. Preliminary Findings Only See Final Report For Complete Findings CT HEAD: Comparison: 02/01/2017 No evidence of acute infarct, hemorrhage, mass or edema. No acute osseous abnormality. Minimal mucosal thickening in the paranasal sinuses. Mastoid air cells are patent. Radiologist: Carlos Pickens MD Chest X-ray One View interpreted by me: No definite infiltrate, no acute disease. Pour inspiratory effort. Laboratory Results 02/27/17 23:40 Red Blood Count 4.83, Mean Corpuscular Volume 82.0, Mean Corpuscular Hemoglobin 26.7, Mean Corpuscular Hemoglobin Concent 32.6, Mean Platelet Volume 10.0, Neutrophils (%) (Auto) 52.6, Lymphocytes (%) (Auto) 35.9, Monocytes (%) (Auto) 7.4, Eosinophils (%) (Auto) 3.3, Basophils (%) (Auto) 0.6, Neutrophils # (Auto) 6.10, Lymphocytes # (Auto) 4.16, Monocytes # (Auto) 0.86, Eosinophils # (Auto) 0.38, Basophils # (Auto) 0.07 02/27/17 23:40 Test 02/27/17 23:40 White Blood Count 11.59 K/uL (4.8-10.8) Red Blood Count 4.83 M/uL (4.2-5.4) Hemoglobin 12.9 g/dL (12.0-16.0) Hematocrit 39.6 % (37-47) Mean Corpuscular Volume 82.0 fL (80-100) Mean Corpuscular Hemoglobin 26.7 pg (25-34) Mean Corpuscular Hemoglobin Concent 32.6 g/dl (32-36) Platelet Count 247 K/uL (130-400) Mean Platelet Volume 10.0 fL (7.4-10.4) Neutrophils (%) (Auto) 52.6 % Lymphocytes (%) (Auto) 35.9 % Monocytes (%) (Auto) 7.4 % Eosinophils (%) (Auto) 3.3 % Basophils (%) (Auto) 0.6 % Neutrophils # (Auto) 6.10 K/uL (1.4-6.5) Lymphocytes # (Auto) 4.16 K/uL (1.2-3.4) Monocytes # (Auto) 0.86 K/uL (0.11-0.59) Eosinophils # (Auto) 0.38 K/uL (0-0.5) Basophils # (Auto) 0.07 K/uL (0-0.2) RDW Standard Deviation 42.8 fL (36.4-46.3) RDW Coefficient of Variation 14.2 % (11.5-14.5) Immature Granulocyte % (Auto) 0.2 % Immature Granulocyte # (Auto) 0.02 K/uL (0.00-0.02) Anion Gap 7.0 mmol/L (3-11) Est Creatinine Clear Calc Drug Dose 106.5 ml/min Estimated GFR () 99.6 Estimated GFR (Non- 85.9 BUN/Creatinine Ratio 12.5 (10-20) Calcium Level 8.8 mg/dl (8.5-10.1) Total Bilirubin 0.3 mg/dl (0.2-1) Direct Bilirubin < 0.1 mg/dl (0-0.2) Aspartate Amino Transf (AST/SGOT) 38 U/L (15-37) Alanine Aminotransferase (ALT/SGPT) 46 U/L (12-78) Alkaline Phosphatase 95 U/L (45-117) Troponin I < 0.015 ng/ml (0-0.045) Total Protein 7.8 gm/dl (6.4-8.2) Albumin 3.6 gm/dl (3.4-5.0) Lipase 146 U/L (73-393) Human Chorionic Gonadotropin, Qual NEG (NEG) Laboratory results per my review. Medications Administered Medications (Trade) Dose Ordered Sig/Sumanth Route Start Time Stop Time Status Last Admin Dose Admin Potassium Chloride (Klor-Con M10) 10 meq NOW STAT PO 02/28/17 00:22 02/28/17 00:23 DC 02/28/17 00:45 10 MEQ ECG Indication: other Rate (beats per minute): 85 Rhythm: normal sinus Findings: no acute ischemic change, no ectopy Change: no significant change (when compared to EKG from February 01, 2017. ) ED Course 2336: The patient was evaluated in room A11. A complete history and physical examination were performed. 0022: Ordered Potassium Chloride 10 meq PO. 0052: Upon reevaluation, the patient is resting comfortably. I discussed the results and treatment plan with her. She verbalized agreement of the treatment plan. The patient was discharged home. Medical Decision Differential diagnosis: Etiologies such as metabolic, infection, hypo/hyperglycemia, electrolyte abnormalities, cardiac sources, intracerebral event, toxicologic, neurologic, as well as others were entertained. Nursing notes reviewed. The patient is a 27-year-old female who presented to the emergency department by EMS for right facial numbness. The patient also complained of chest pain. The patient was treated with potassium replacement in the emergency department because of low potassium. I discussed the patient's laboratory and radiographic studies with her. She did not have any focal neurologic deficit. She was encouraged to call her primary care physician in the morning to schedule follow- up appointment and rest. Otherwise she was encouraged to continue all medications as prescribed and return to the emergency department immediately if symptoms change worsen or the need arises. Impression Primary Impression: Numbness and tingling of right side of face Additional Impressions: Anterior chest wall pain Hypokalemia Right shoulder pain Scribe Attestation The scribe's documentation has been prepared under my direction and personally reviewed by me in its entirety. I confirm that the note above accurately reflects all work, treatment, procedures, and medical decision making performed by me. Departure Information Dispostion Home / Self-Care Referrals No Doctor, Assigned (PCP) Forms HOME CARE DOCUMENTATION FORM, IMPORTANT VISIT INFORMATION, WORK / SCHOOL INSTRUCTIONS Patient Instructions ED Chest Pain Atypical Unkn Cause, My [facility] Additional Instructions Call your family in the morning to schedule a follow-up appointment. You may require further studies such as an MRI the brain or a referral to a neurologist to further evaluate the cause of the numbness. Return to the emergency department immediately if symptoms change worsen or the need arises. Problem Qualifiers
[2017-02-27 23:55] LABS: BASO % 0.6 %; BASO ABS # 0.07 K/uL (0-0.2); COMPLETE YES; EOS % 3.3 %; HEMATOCRIT 39.6 % (37-47); IG% 0.2 %; LYMPH % 35.9 %; LYMPH ABS # 4.16 K/uL (1.2-3.4); MEAN CORPUSCULAR HEMOGLOBIN 26.7 pg (25-34); MEAN CORPUSCULAR HGB CONC 32.6 g/dl (32-36); MONO % 7.4 %; NEUT % 52.6 %; PLATELET COUNT 247 K/uL (130-400); RED BLOOD COUNT 4.83 M/uL (4.2-5.4); WHITE BLOOD COUNT 11.59 K/uL (4.8-10.8)
[2017-02-28 00:14] LABS: ALT/SGPT 46 U/L (12-78); AST/SGOT 38 U/L (15-37); BLOOD UREA NITROGEN 12 mg/dl (7-18); BUN/CREATININE RATIO 12.5 (10-20); CALCIUM 8.8 mg/dl (8.5-10.1); CARBON DIOXIDE 29 mmol/L (21-32); CHLORIDE 107 mmol/L (98-107); CREATININE 0.92 mg/dl (0.60-1.20); GLUCOSE 124 mg/dl (70-99); POTASSIUM 3.1 mmol/L (3.5-5.1); SODIUM 143 mmol/L (136-145)
[2017-02-28 00:19] LABS: ALKALINE PHOSPHATASE 95 U/L (45-117)
[2017-02-28 00:21] LABS: PREG INTERNAL NEGATIVE QC NEG CLEAR BACKGROUND; PREG INTERNAL POSITIVE QC POS CONTROL LINE
[2017-02-28] MEDS ORDERED: POTASSIUM CHLORIDE 10 MEQ TABCR PO STA (00:22)
[2017-02-28 00:58] VITALS: PULSE 84; O2SAT 94
[2017-02-28 01:00] VITALS: BP 114/62
--- NOTE | 2017-02-28 06:34 | DIAGNOSTIC IMAGING REPORT ---
CHEST ONE VIEW PORTABLE CLINICAL HISTORY: CHEST PAIN dyspnea COMPARISON STUDY: 10/31/2016 FINDINGS: The bones soft tissues and hemidiaphragms are normal. The cardiomediastinal silhouette is normal. The lungs are clear. The pulmonary vasculature is normal. IMPRESSION: Negative chest. Electronically signed by: Jovani Richards M.D. 02/28/2017 6:33 AM Dictated Date/Time: 02/28/2017 6:33 AM
--- NOTE | 2017-02-28 06:35 | DIAGNOSTIC IMAGING REPORT ---
HEAD CT NONCONTRAST CT DOSE: 614.27 mGy.cm HISTORY: Neuropathy right facial numbness TECHNIQUE: Multiaxial CT images of the head were performed without the use of intravenous contrast. Comparison: 02/01/2017 Findings: The paranasal sinuses and mastoid air cells are clear. The calvarium and skull base are intact. The ventricles and sulci are within normal limits. There is no mass, hematoma, midline shift, or acute infarct. Impression: No acute intracranial abnormality. Electronically signed by: Jovani Richards M.D. 02/28/2017 6:34 AM Dictated Date/Time: 02/28/2017 6:33 AM
[2017-06-28] MEDS ORDERED: DICL75TA2 PO (15:34)
== END 2017-02-28 01:13 | disposition home or self-care (01) ==
LOC: EDBD 23:28 → C.EDA 23:30
DX: R07.89 Other chest pain (principal); R20.0 Anesthesia of skin; R11.0 Nausea; E87.6 Hypokalemia; M25.511 Pain in right shoulder; G62.9 Polyneuropathy, unspecified; Z83.2 Family history of diseases of the blood and blood-forming organs and certain disorders involving the immune mechanism

== ENCOUNTER → 2017-07-04 | Day surgery (SDC) | payer OTHER ==
[2017-06-28 15:35] VITALS: Ht 152.4 cm; Wt 104.5 kg
[~2017-07-04] VITALS: Ht 152.4 cm; Wt 104.5 kg
[~2017-07-04] MED LIST changes: +DICL75TA2 PO; -FEXO1TAB58 PO; +LIDOCAINE HCL 2% 2 ML VIAL (20MG/ML) ONE; +PROPOFOL IV EMULSION 10 MG/ML 20 ML VIAL IV ONE; +SODIUM CHLORIDE 0.9% 500ML 500 ML IV ONE
--- NOTE | 2017-07-04 10:38 | Endo History and Physical ---
History & Physical Date of Service: Jul 04, 2017. Chief Complaint: Rectal bleeding, abdominal pain Referring Physician: Dr. Shukri Randle History of Present Illness Rectal bleeding. Past Medical History Depression Past Surgical History Hx Cardiac Surgery: No Hx Internal Defibrillator: No Hx Pacemaker: No Hx Abdominal Surgery: Yes (APPY, MYLENE) Hx of Implantable Prosthesis: No Hx Post-Op Nausea and Vomiting: No Hx Cancer Surgery: No Hx Thoracic Surgery: No Hx Orthopedic: No Hx Urinary Tract Surgery: No Family History Polyp Social History Smoking Status: Never Smoker Hx Substance Use: No Hx Alcohol Use: No Allergies Coded Allergies: No Known Allergies (Verified , 06/28/17) Current Medications Reported Home Medications Medications Dose Route/Sig Max Daily Dose Days Date Category Dose Instructions Voltaren (Diclofenac Sodium) 75 Mg Tab 75 Mg PO BID PRN 06/28/17 Reported WITH FOOD Meclizine HCl 12.5 Mg Tab 12.5 Mg PO TID PRN 08/24/16 Reported Excedrin Migraine (Dkxhplk-Yfidxvtszgmyh-Gvgheein) 1 Tab Tab 1 Tab PO UD PRN 08/24/16 Reported Citalopram Hydrobromide 10 Mg Tab 10 Mg PO QAM 07/07/16 Reported Gabapentin 100 Mg Cap 100 Mg PO TID 04/19/16 Reported USUALLY TAKES AM ONLY Vital Signs Weight (Kilograms): 104.55 Height (Feet): 5 Height (Inches): 0 Date Time Temp Pulse Resp B/P (MAP) Pulse Ox O2 Delivery O2 Flow Rate FiO2 07/04/17 09:27 37 62 16 113/64 (80) 98 Room Air Physical Exam General Appearance: WD/WN, no apparent distress, + obese Respiratory/Chest: Auscultation: breath sounds normal, no wheezing Cardiovascular: Heart Auscultation: RRR, no murmurs Abdomen: Inspection & Palpation: soft, no tenderness, guarding & rebound Assessment and Plan Colonoscopy today.
--- NOTE | 2017-07-04 11:21 | Discharge Instructions ---
Endoscopy Patient Instructions Date / Procedure(s) Performed Jul 04, 2017. Colonoscopy Allergy Information Coded Allergies: No Known Allergies (Verified , 06/28/17) Discharge Date / Findings Jul 04, 2017. Normal colonoscopy Medication Instructions Restart Stopped Medication(s): Restart all medications today. Take Citrucel powder one scoop (heaping tablesppoon) mixed with Miralax 1/2 to 1 capful every morning. Provider Instructions Activity Restrictions - No exercising or heavy lifting for 24 hours. - Do not drink alcohol the day of the procedure. - Do not drive a car or operate machinery until the day after the procedure. - Do not make any important decisions or sign important papers in 24 hours after the procedure. Following Day: - Return to full activity which may include returning to work/school. Diet Start your diet with liquids and light foods (jello, soup, juice, toast). Then eat your usual diet if not nauseated. Treatment For Common After Affects For mild abdominal pain, bloating, or excessive gas: - Rest - Eat lightly - Lie on right side Follow-Up Information Follow-up with Dr. Shukri Randle as scheduled Anesthesia Information What You Should Know You have had a procedure that required some medicine to reduce anxiety and discomfort. This treatment is called moderate sedation. After receiving the treatment, you may be sleepy, but you will be able to breathe on your own. The effects of the treatment may last for several hours. Follow these instructions along with Activity/Diet recommendations noted above: * Do NOT do anything where dizziness or clumsiness would be dangerous. * Rest quietly at home today, then you can be up and about tomorrow. * Have a responsible person stay with you the rest of today. * You may have had an I.V. today. If so, you may take the dressing off later today. Recommendations Call your doctor if: * Trouble breathing * Continuous vomiting for more than 24 hours * Temperature above 101 degrees * Severe abdominal pain or bloating * Pain not relieved by pain medicine ordered * There is increased drainage or redness from any incision * A large amount of rectal bleeding greater than 2-3 tablespoons. (If you had a polyp/s removed or have hemorrhoids, a small amount of blood - from the rectum is to be expected.) * You have any unanswered questions or concerns. IN THE EVENT OF A SERIOUS EMERGENCY, GO TO THE NEAREST EMERGENCY ROOM Your discharge instructions were prepared by provider Justin Collins. Patient Instructions Signature Page Alexis Alaniz Patient (or Guardian) Signature/Date: I have read and understand the instructions given to me by my caregivers. Caregiver/RN/Doctor Signature/Date: The above-named patient and/or guardian has received patient instructions on this date. + Original Patient Signature Page (only) stays with chart. Please make copy for patient.
--- NOTE | 2017-07-04 11:33 | GI REPORT ---
Procedure Date: 07/04/2017 10:59 AM Procedure: Colonoscopy Indications: Rectal bleeding Medicines: Propofol per Anesthesia Complications: No immediate complications. Estimated blood loss: None. Estimated Blood Loss: Estimated blood loss: none. Procedure: Pre-Anesthesia Assessment: - Prior to the procedure, a History and Physical was performed, and patient medications, allergies and sensitivities were reviewed. The patient's tolerance of previous anesthesia was reviewed. - ASA Grade Assessment: III - A patient with severe systemic disease. After I obtained informed consent, the scope was passed under direct vision. Throughout the procedure, the patient's blood pressure, pulse, and oxygen saturations were monitored continuously. The scope was introduced through the anus and advanced to the terminal ileum, with identification of the appendiceal orifice and IC valve. The colonoscopy was performed with ease. The patient tolerated the procedure well. The quality of the bowel preparation was good. The bowel preparation used was split dose MIralax. Findings: The entire examined colon appeared normal. Impression: - The entire examined colon is normal to the terminal ileum with retroflexed views of the colon and terminal ileum. - No specimens collected. Recommendation: - Take Citrucel 2 TBS and MIralax 1/2 scoop daily. - Discharge patient to home (with escort). Justin Collins M.D. Justin Collins MD 07/04/2017 11:33:01 AM This report has been signed electronically. Note Initiated On: 07/04/2017 10:59 AM I attest to the content of the Intraoperative Record and orders documented therein, exceptions below
--- NOTE | 2017-07-04 11:45 | Anesthesiology Progress Note ---
Anesthesia Post Op Note Date & Time Jul 04, 2017 at 11:45 Vital Signs Pain Intensity: 5 Vital Signs Past 12 Hours Date Time Temp Pulse Resp B/P (MAP) Pulse Ox O2 Delivery O2 Flow Rate FiO2 07/04/17 11:24 72 20 105/63 (77) 98 Room Air 07/04/17 09:27 37 62 16 113/64 (80) 98 Room Air Notes Mental Status: alert / awake / arousable, participated in evaluation Pt Amnestic to Procedure: Yes Nausea / Vomiting: adequately controlled Pain: adequately controlled Airway Patency, RR, SpO2: stable & adequate BP & HR: stable & adequate Hydration State: stable & adequate Anesthetic Complications: no major complications apparent
[2017-07-04 11:59] VITALS: BP 115/70; PULSE 85; O2SAT 98
== END | disposition home or self-care (01) ==
LOC: C.GI 08:23
PROVIDERS: ATTEND Internal Medicine Gastroenterology
DX: K62.5 Hemorrhage of anus and rectum (principal); Z83.71 Family history of colonic polyps; F32.9 Major depressive disorder, single episode, unspecified; Z79.899 Other long term (current) drug therapy